=== PATIENT | female | born 1965 | race Two or more races ===

== ENCOUNTER 2024-07-13 15:04 | Emergency (ER) | payer OTHER ==
[~2024-07-13] VITALS: Ht 157.5 cm; Wt 68.0 kg
[2024-07-13] MEDS ORDERED: LEVOTHYROXINE25 MCG PO (15:09)
[2024-07-13] MEDS ORDERED: COZAAR25 MG PO (15:09)
[2024-07-13] MEDS ORDERED: TOPROL XL25 M1 PO (15:09)
[2024-07-13] MEDS ORDERED: TETRACAINE HCL 20 DR/ML DROPS OP STA (15:39)
[2024-07-13] MEDS ORDERED: AKTOB5 ML OP (16:01)
[2024-07-13] MEDS ORDERED: TOBREX3.5 G1 OP (16:07)
== END 2024-07-13 16:30 | disposition home or self-care (01) ==
LOC: ER 15:06
DX: S05.00XA Injury of conjunctiva and corneal abrasion without foreign body, unspecified eye, initial encounter (principal); X58.XXXA Exposure to other specified factors, initial encounter; Y93.89 Activity, other specified; Y92.89 Other specified places as the place of occurrence of the external cause; Y99.8 Other external cause status

== ENCOUNTER 2024-08-11 17:26 | Emergency (ER) | payer OTHER ==
[~2024-08-11] VITALS: Ht 157.5 cm; Wt 68.0 kg
[~2024-08-11 17:26] MED LIST: AKTOB5 ML OP; COZAAR25 MG PO; LEVOTHYROXINE25 MCG PO; TOBREX3.5 G1 OP; TOPROL XL25 M1 PO
[2024-08-11 20:33] LABS: HEMATOCRIT 39.4 % (36.0-45.00); HEMOGLOBIN 13.7 g/dL (12.0-15.00); MEAN CELL VOLUME 86.6 fL (80.00-100.00); MEAN CORPUSCULAR HEMOGLOBIN 30.1 pg (27.00-32.0); MEAN CORPUSCULAR HGB CONC 34.8 g/dl (32.0-36.0); PLATELET COUNT 304 K/uL (150-450); RED BLOOD COUNT 4.55 M/uL (4.00-6.00); RED CELL DISTRIBUTION WIDTH 14.2 % (11.5-14.5)
[2024-08-11] MEDS ORDERED: IPRATROPIUM/ALBUTEROL SULFATE 3 ML AMPUL.NEB IH ONE (23:30)
== END 2024-08-12 00:31 | disposition home or self-care (01) ==
LOC: ER 17:26
PROVIDERS: Preventive Medicine Public Health & General Preventive Medicine
DX: J06.9 Acute upper respiratory infection, unspecified (principal); I10 Essential (primary) hypertension; E03.8 Other specified hypothyroidism